=== PATIENT | female | born 1980 | race Caucasian/White ===

== ENCOUNTER → 2016-12-15 | Outpatient (CLI) | payer OTHER ==
[~2016-12-15] MED LIST: CLIN1CAP5 PO; DOXY100T PO; HYDR-3111 PO; NORE1TAB60 PO; PROCHCT RECTAL
--- NOTE | 2016-12-15 14:57 | RADRPT ---
EXAM DATE/TIME: 12/15/2016 12:11 [facility] COMPARISON: No previous studies available for comparison. INDICATIONS : Right chronic knee pain with no known injury. MEDICAL HISTORY : Hypertension. Arthritis. Seizures. Scoliosis. SURGICAL HISTORY : Tubal ligation. section. ENCOUNTER: Initial ACUITY: >1 year PAIN SCORE: 8/10 LOCATION: Right knee FINDINGS: Four view examination of the right knee demonstrates no evidence of fracture or dislocation. Bony mi neralization is normal. The articular surfaces are intact. The suprapatellar soft tissues have a no rmal configuration. CONCLUSION: Normal examination for a patient of this age. Jagdeep Hatfield MD on December 15, 2016 at 14:55 Board Certified Radiologist. This report was verified electronically.
--- NOTE | 2016-12-15 14:58 | RADRPT ---
EXAM DATE/TIME: 12/15/2016 12:12 [facility] COMPARISON: No previous studies available for comparison. INDICATIONS : Left chronic knee pain with no known injury. MEDICAL HISTORY : Hypertension. Arthritis. Scoliosis. Seizures. SURGICAL HISTORY : Tubal ligation. section. ENCOUNTER: Initial ACUITY: >1 year PAIN SCORE: 8/10 LOCATION: Left knee FINDINGS: Four view examination of the left knee demonstrates no evidence of fracture or dislocation. Bony min eralization is normal. The articular surfaces are intact. The suprapatellar soft tissues have a nor mal configuration. CONCLUSION: No acute disease. Frank Basurto Jr., MD on December 15, 2016 at 14:55 Board Certified Radiologist. This report was verified electronically.
== END ==
LOC: HRAD 11:45
DX: M25.569 Pain in unspecified knee (principal)
CPT/HCPCS: 73564

== ENCOUNTER 2017-02-27 07:07 | Emergency (ER) | payer OTHER ==
[~2017-02-27] VITALS: Ht 162.6 cm; Wt 45.0 kg
[2017-02-27 07:15] VITALS: BP 169/109; PULSE 111; RESP 16; TEMP 97.8; O2SAT 99
[2017-02-27] MEDS ORDERED: FERR325T18 PO (07:26)
[2017-02-27] MEDS ORDERED: CYCL10TA PO (07:26)
--- NOTE | 2017-02-27 07:36 | PD ---
HPI Chief Complaint: Headache Time Seen by Provider: 07:36 Travel History International Travel<30 days: No Contact w/Intl Traveler<30days: No Traveled to known affect area: No History of Present Illness HPI 36-year-old female came to the emergency room for headache. Patient has history of headache but says that this one is far worse than its usual intensity. It started 1 hour ago. Patient says is 10 out of 10. Location of the headache is same as before. Patient says that she has never had to come to the emergency room for headache. However patient has had a few visits in [place] emergency room and in 2007 she has had couple visits for cephalgia. Patient was slightly tachycardic upon arrival. Afebrile. She says she has been nauseous and vomiting. She was awake and answering questions appropriately. [facility] Past Medical History Narrative Medical List of her past medical, surgical, social and family history is reviewed from the nursing note. Arthritis: Yes Blood Disorders: No Anxiety: Yes Depression: No Heart Rhythm Problems: No Cancer: No Cardiovascular Problems: Yes High Cholesterol: No Chest Pain: No Congestive Heart Failure: No Cerebrovascular Accident: No Diminished Hearing: No Endocrine: No Genitourinary: Yes Headaches: Yes Hypertension: Yes Immune Disorder: No Kidney Stones: No Musculoskeletal: Yes (scoliosis, ) Neurologic: Yes Reproductive: No Respiratory: No Immunizations Current: Yes Migraines: Yes Myocardial Infarction: No Renal Failure: No Seizures: Yes ?: Not Menopausal: No : 1 Para: 1 Past Surgical History AICD: No Arteriovenous Shunt: No Section: Yes (2003) Ear Surgery: Yes (TUBES 5 Y/O) Insulin Pump: No Joint Replacement: No Pacemaker: No Social History Alcohol Use: No Tobacco Use: No Substance Use: No Allergies-Medications (Allergen,Severity, Reaction): Coded Allergies: amoxicillin (Unverified Allergy, Severe, Anaphylaxis, 02/27/17) cefaclor (Unverified Allergy, Severe, Anaphylaxis, 02/27/17) escitalopram (Unverified Allergy, Severe, Anaphylaxis, 02/27/17) sulfamethoxazole (Unverified Allergy, Severe, Anaphylaxis, 02/27/17) trimethoprim (Unverified Allergy, Severe, RASH, 02/27/17) morphine (Unverified Allergy, Intermediate, EDEMA, 02/27/17) ketorolac (Unverified Allergy, Mild, RASH, 02/27/17) lisinopril (Unverified Adverse Reaction, Severe, HYPOTENSIVE, 02/27/17) promethazine (Unverified Adverse Reaction, Severe, VOMITING, 02/27/17) Comments List of her allergies reviewed from the nursing note. Reported Meds & Prescriptions Reported Meds & Active Scripts Active Loestrin 1/20 (Norethindrone-Ethinyl Estradiol) 1-20 Mg-Mcg Tab 1 Tab PO DAILY Reported Ferrous Sulfate 325 Mg (65 Mg Iron) Tablet 325 Mg PO DAILY Flexeril (Cyclobenzaprine HCl) 10 Mg Tab 10 Mg PO TID Narrative Medication List of her home medications reviewed from the nursing note. Review of Systems Except as stated in HPI: all other systems reviewed are Neg Neurologic: Positive: Headache Physical Exam Narrative GENERAL: Awake, alert, no obvious distress SKIN: Focused skin assessment warm/dry. HEAD: Atraumatic. Normocephalic. EYES: Pupils equal and round. No scleral icterus. No injection or drainage. ENT: No nasal bleeding or discharge. Mucous membranes pink and moist. NECK: Trachea midline. No JVD. CARDIOVASCULAR: Regular rate and rhythm. No murmur appreciated. RESPIRATORY: No accessory muscle use. Clear to auscultation. Breath sounds equal bilaterally. GASTROINTESTINAL: Abdomen soft, non-tender, nondistended. Hepatic and splenic margins not palpable. MUSCULOSKELETAL: No obvious deformities. No clubbing. No cyanosis. No edema. NEUROLOGICAL: Awake and alert. No obvious cranial nerve deficits. Motor grossly within normal limits. Normal speech. PSYCHIATRIC: Appropriate mood and affect; insight and judgment normal. Data Data Last Documented VS Orders Orders Complete Blood Count With Diff (02/27/17 07:40) Basic Metabolic Panel (Bmp) (02/27/17 07:40) Prochlorperazine Inj (Compazine Inj) (02/27/17 07:45) Diphenhydramine Inj (Benadryl Inj) (02/27/17 07:45) Sodium Chlor 0.9% 1000 Ml Inj (Ns 1000 M (02/27/17 07:45) Ed Discharge Order (02/27/17 08:58) Labs Laboratory Tests Test 02/27/17 07:53 White Blood Count 7.7 TH/MM3 Red Blood Count 4.03 MIL/MM3 Hemoglobin 11.5 GM/DL Hematocrit 35.4 % Mean Corpuscular Volume 87.8 FL Mean Corpuscular Hemoglobin 28.5 PG Mean Corpuscular Hemoglobin Concent 32.4 % Red Cell Distribution Width 12.2 % Platelet Count 300 TH/MM3 Mean Platelet Volume 6.8 FL Neutrophils (%) (Auto) 68.2 % Lymphocytes (%) (Auto) 27.2 % Monocytes (%) (Auto) 3.4 % Eosinophils (%) (Auto) 0.6 % Basophils (%) (Auto) 0.6 % Neutrophils # (Auto) 5.3 TH/MM3 Lymphocytes # (Auto) 2.1 TH/MM3 Monocytes # (Auto) 0.3 TH/MM3 Eosinophils # (Auto) 0.0 TH/MM3 Basophils # (Auto) 0.0 TH/MM3 CBC Comment DIFF FINAL Differential Comment Blood Urea Nitrogen 15 MG/DL Creatinine 0.48 MG/DL Random Glucose 100 MG/DL Calcium Level 8.5 MG/DL Sodium Level 140 MEQ/L Potassium Level 3.9 MEQ/L Chloride Level 105 MEQ/L Carbon Dioxide Level 29.9 MEQ/L Anion Gap 5 MEQ/L Estimat Glomerular Filtration Rate 148 ML/MIN MDM Medical Decision Making Medical Screen Exam Complete: Yes Emergency Medical Condition: Yes Medical Record Reviewed: Yes Differential Diagnosis Migraine headache, headache NOS Narrative Course 8:53 AM patient was given IV Compazine and Benadryl and IV fluid bolus. Blood test results of back and within normal limit. I intend to discharge the patient home at this point. I just reassessed her and she said that her headache was much better. Procedures EKG Prior to Arrival: No Diagnosis Primary Impression: Headache Qualified Codes: R51 - Headache Referrals: Primary Care Physician Additional Instructions: Do not drink alcohol, smoke cigarettes or any other stimulants. Do not watch television, computer screen or Smart phone screens since they will make the headache worse. Drinking coffee or caffeinated beverages would be helpful. Drink lots of fluid. Follow-up with your primary care. Disposition: 01 DISCHARGE HOME Condition: Stable Valentine Ford MD Feb 27, 2017 07:36
[2017-02-27] MEDS ORDERED: diphenhydrAMINE HCL 50 MG/ML VIAL IV PUSH ONE (07:45)
[2017-02-27] MEDS ORDERED: PROCHLORPERAZINE INJ 10 MG/2 ML VIAL IV PUSH ONE (07:45)
[2017-02-27] MEDS ORDERED: SODIUM CHLOR 0.9% 1000 ML INJ 1,000 ML IV ONE (07:45)
[2017-02-27 08:03] LABS: AUTOMATED NEUTROPHIL # 5.3 TH/MM3 (1.8-7.7); BASOPHIL % 0.6 % (0.0-2.0); EOSINOPHIL % 0.6 % (0.0-4.0); HEMATOCRIT 35.4 % (35.0-46.0); HEMOGLOBIN 11.5 GM/DL (11.6-15.3); LYMPH % 27.2 % (9.0-44.0); LYMPHOCYTE # 2.1 TH/MM3 (1.0-4.8); MEAN CELL VOLUME 87.8 FL (80.0-100.0); MEAN CORPUSCULAR HEMOGLOBIN 28.5 PG (27.0-34.0); MEAN CORPUSCULAR HGB CONC 32.4 % (32.0-36.0); MEAN PLATELET VOLUME 6.8 FL (7.0-11.0); MONO % 3.4 % (0.0-8.0); MONOCYTE # 0.3 TH/MM3 (0-0.9); NEUT % 68.2 % (16.0-70.0); PLATELET COUNT 300 TH/MM3 (150-450); RED BLOOD COUNT 4.03 MIL/MM3 (4.00-5.30); RED CELL DISTRIBUTION WIDTH 12.2 % (11.6-17.2); WHITE BLOOD COUNT 7.7 TH/MM3 (4.0-11.0)
[2017-02-27 08:14] LABS: BICARBONATE 29.9 MEQ/L (21.0-32.0); CALCIUM 8.5 MG/DL (8.5-10.1)
[2017-02-27 08:18] LABS: CREATININE 0.48 MG/DL (0.50-1.00)
[2017-02-27 08:59] VITALS: BP 140/101; PULSE 84; RESP 18; O2SAT 99
== END 2017-02-27 09:09 | disposition home or self-care (01) ==
LOC: PHED 07:07
DX: R51 Headache (principal); R00.0 Tachycardia, unspecified; R11.2 Nausea with vomiting, unspecified; I10 Essential (primary) hypertension; Z87.39 Personal history of other diseases of the musculoskeletal system and connective tissue; Z86.59 Personal history of other mental and behavioral disorders; Z86.79 Personal history of other diseases of the circulatory system; Z87.448 Personal history of other diseases of urinary system; Z86.69 Personal history of other diseases of the nervous system and sense organs
CPT/HCPCS: 80048; 85025; 96361; 96374; 96375; 99284; J0780; J1200; J7030